=== PATIENT | male | born 1955 | race Caucasian/White ===

== ENCOUNTER 2021-03-16 14:32 | Emergency (ER) | payer MEDICARE, OTHER ==
[~2021-03-16] VITALS: Ht 170.2 cm; Wt 88.6 kg
[2021-03-16 15:06] VITALS: TEMP 98.1
[2021-03-16 15:54] LABS: BASO % 0.4 % (0.0-2.0); EOS # 0.2 (0.0-0.7); GRAN # 5.1 (1.4-6.5); GRAN % 63.9 % (42.2-75.2); HEMATOCRIT 37.8 % (42.0-52.0); HEMOGLOBIN 13.2 g/dl (13.5-18.0); LYMPH % 24.4 % (20.0-51.0); MEAN CELL VOLUME 90 fl (80.0-100.0); MEAN CORPUSCULAR HEMOGLOBIN 31 pg (27.0-31.0); MEAN CORPUSCULAR HGB CONC 35 g/dl (33.0-37.0); MEAN PLATELET VOLUME 10.7 fl (7.4-10.4); MONO # 0.7 (0.1-0.6); MONO % 9.1 % (1.7-9.3); PLATELET COUNT 205 K/mm3 (130-400); RED BLOOD COUNT 4.22 M/mm3 (4.20-5.60); REDCELL DISTRIBUTION WIDTH-CV 12.5 % (11.5-14.5)
[2021-03-16 16:04] LABS: ALANINE AMINOTRANSFERASE 18 U/L (4-49); ALBUMIN 4.1 gm/dL (3.5-5.0); ALKALINE PHOSPHATASE 41 U/L (50-136); ANION GAP 8 mmol/L (7-16); AST,SGOT 28 U/L (15-37); BILIRUBIN,TOTAL 0.5 mg/dL (0.0-1.0); BLOOD UREA NITROGEN 17 mg/dL (9-20); CALCIUM 6.2 mg/dL (8.4-10.2); CARBON DIOXIDE 26 mmol/L (22-30); CHLORIDE 109 mmol/L (98-107); CREATININE, serum 1.12 (0.66-1.25); GLUCOSE 106 mg/dL (74-106); SODIUM 143 mmol/L (137-145); TOTAL PROTEIN 7.4 gm/dL (6.4-8.2)
[2021-03-16 16:24] LABS: POTASSIUM 2.9 mmol/L (3.4-5.0); TROPONIN-I < 0.012 ng/mL (0.000-0.035)
[2021-03-16 16:42] LABS: C-REACTIVE PROTEIN < 0.5 mg/dL (0.0-0.9); MAGNESIUM < 0.2 mg/dL (1.6-2.3)
[2021-03-16] MEDS ORDERED: K-DUR20 MEQ PO (18:13)
[2021-03-16 19:06] VITALS: BP 126/80; PULSE 98
== END 2021-03-16 19:40 | disposition home or self-care (01) ==
LOC: COL.ER 14:32
PROVIDERS: Nurse Practitioner
DX: E87.6 Hypokalemia (principal); F17.210 Nicotine dependence, cigarettes, uncomplicated
CPT/HCPCS: J3475; Q9967

== ENCOUNTER → 2021-03-26 | Outpatient (CLI) | payer MEDICARE, OTHER ==
[~2021-03-26] MED LIST: ASPIRIN 81M81 MG/TA2 PO; BRILINTA90 MG PO; CENTRUM SILVER1 TAB; K-DUR20 MEQ PO; LIPITOR 40MG TA40 MG PO; LIPITOR 80MG80 MG PO; PEPCID 20MG TAB20 MG; TOPROL XL 25MG25 MG PO
== END ==
LOC: COL.RAD 03-20 14:30
DX: Z12.2 Encounter for screening for malignant neoplasm of respiratory organs (principal); Z00.00 Encounter for general adult medical examination without abnormal findings; J94.8 Other specified pleural conditions; Z87.891 Personal history of nicotine dependence

== ENCOUNTER 2021-05-04 13:05 | Day surgery (SDC) | payer MEDICARE, OTHER ==
[~2021-05-04] VITALS: Ht 170.2 cm; Wt 87.0 kg
[~2021-05-04 13:05] MED LIST changes: -ASPIRIN 81M81 MG/TA2 PO; -BRILINTA90 MG PO; -CENTRUM SILVER1 TAB; -LIPITOR 40MG TA40 MG PO; -LIPITOR 80MG80 MG PO; -PEPCID 20MG TAB20 MG; -TOPROL XL 25MG25 MG PO
--- NOTE | 2021-05-04 13:30 | NUR ---
Dr Verde here to talk with pt. No ASA given per physician since pt took at home this time.
[2021-05-04] MEDS ORDERED: ASPIRIN 81M81 MG/TA2 PO (13:54)
[2021-05-04] MEDS ORDERED: PEPCID 20MG TAB20 MG (13:55)
[2021-05-04] MEDS ORDERED: LIPITOR 40MG TA40 MG PO (13:56)
[2021-05-04] MEDS ORDERED: CENTRUM SILVER1 TAB (13:56)
[2021-05-04 13:57] VITALS: BP 128/88; PULSE 120; TEMP 98.9
[2021-05-04 13:59] LABS: HEMATOCRIT 43.1 % (42.0-52.0); HEMOGLOBIN 14.6 g/dl (13.5-18.0); MEAN CELL VOLUME 95 fl (80.0-100.0); MEAN CORPUSCULAR HEMOGLOBIN 32 pg (27.0-31.0); MEAN CORPUSCULAR HGB CONC 34 g/dl (33.0-37.0); MEAN PLATELET VOLUME 9.7 fl (7.4-10.4); PLATELET COUNT 215 K/mm3 (130-400); RED BLOOD COUNT 4.55 M/mm3 (4.20-5.60); REDCELL DISTRIBUTION WIDTH-CV 11.9 % (11.5-14.5)
[2021-05-04 14:01] LABS: INR 1.1 (0.8-3.0); PROTHROMBIN TIME 12.3 SECONDS (9.7-12.8)
[2021-05-04 14:04] LABS: PARTIAL THROMBOPLASTIN TIME 30.7 SECONDS (26.0-37.0)
[2021-05-04 14:18] LABS: ALBUMIN 4.4 gm/dL (3.5-5.0); BILIRUBIN,TOTAL 0.8 mg/dL (0.0-1.0); CALCIUM 9.3 mg/dL (8.4-10.2); CREATININE, serum 1.04 (0.66-1.25); MAGNESIUM 1.8 mg/dL (1.6-2.3); POTASSIUM 3.8 mmol/L (3.4-5.0); TOTAL PROTEIN 7.8 gm/dL (6.4-8.2)
--- NOTE | 2021-05-04 14:20 | NUR ---
RT here from pre-op EKG.
[2021-05-04 15:10] VITALS: BP 134/84; PULSE 109
--- NOTE | 2021-05-04 15:11 | NUR ---
SEE MERGE DOCUMENTATION FOR MEDICATION ADMINISTRATION TIMES AND INTRA/POST PROCEDURE SEDATION ASSESSMENTS.
[2021-05-04 19:43] VITALS: BP 119/71; PULSE 88; TEMP 97.8
[2021-05-04 23:01] VITALS: BP 105/71; PULSE 78; TEMP 98
--- NOTE | 2021-05-05 01:20 | NUR ---
AT 2240 ALL 14L OF T BAND RELEASE COMPLETED. THIS NURSE RELEASED AIR IN INCRAMENTS OF 2 EVERY HALF HOUR. HEMATOMA NOTED AT SHIFT CHANGE, T BAND REMAINS ON HEMATOMA INFLATED WITH AIR. THIS NURSE WILL CONTINUE TO MONITOR HEMATOMA, PT'S DENIES PARETHESIA, PAIN, NUMBNESS. PT CAPILLARY REFILL WNL, PT'S ARM NOT COOL TO THE TOUCH, PULSES WNL. PT DOES NOT EXPRESS ANY ADDITIONAL NEEDS AT THIS TIME. CALL LIGHT WITHIN REACH.
[2021-05-05 03:13] VITALS: BP 114/74; PULSE 74; TEMP 98.3
--- NOTE | 2021-05-05 06:36 | NUR ---
PT HAD UNEVENTFUL NIGHT, A/OX4, RADIAL SITE C/D/I, HEMATOMA ALMOST COMPLETELY RESOLVED,NO COOLNESS NOTED, CAPILLARY REFILL WNL, 02 ROOM AIR, N/S INFUSING AT 100. CALL LIGHT WITHIN REACH.
[2021-05-05 07:31] VITALS: BP 107/90; PULSE 74; TEMP 97.3
[2021-05-05 07:53] LABS: BASO % 0.4 % (0.0-2.0); EOS # 0.4 (0.0-0.7); EOS % 4.1 % (0-4.0); GRAN # 6.2 (1.4-6.5); HEMATOCRIT 41.1 % (42.0-52.0); HEMOGLOBIN 13.8 g/dl (13.5-18.0); LYMPH # 1.2 (1.2-3.4); LYMPH % 13.6 % (20.0-51.0); MEAN CELL VOLUME 94 fl (80.0-100.0); MEAN CORPUSCULAR HEMOGLOBIN 32 pg (27.0-31.0); MEAN CORPUSCULAR HGB CONC 34 g/dl (33.0-37.0); MEAN PLATELET VOLUME 9.9 fl (7.4-10.4); MONO # 0.8 (0.1-0.6); MONO % 9.4 % (1.7-9.3); PLATELET COUNT 194 K/mm3 (130-400); RED BLOOD COUNT 4.38 M/mm3 (4.20-5.60); REDCELL DISTRIBUTION WIDTH-CV 11.7 % (11.5-14.5)
[2021-05-05 08:00] LABS: CREATININE, serum 1.11 (0.66-1.25); POTASSIUM 3.9 mmol/L (3.4-5.0)
--- NOTE | 2021-05-05 09:31 | NUR ---
Initial visit; Patient thanked Assistant Food Service Manager for loooking in on him, offering God's blessings and to keep him in Assistant Food Service Manager's prayers.
--- NOTE | 2021-05-05 09:58 | NUR ---
JUAN LUIS met with the patient to discuss discharge plan. The patient lives alone in [place]. He states that his nephew, Enoc, lives [address] away from him. He reports independence with ADLs and does not have any DME. The patient's PCP is Dr. Hanane Motta and he receives his medications from [facility]. He reports no difficulties obtaining his meds. The patient does not have a DPOA-HC and he was not interested in completing one while here. He states that he already has a form at home he can fill out, when ready to. He states that he is not , has no children, and his parents are . He states that he has one sibling: Chandra. The patient plans to return home upon discharge. He states that his niece, Kaye (ph#[phone]), will transport him home. No additional needs at this time. *Discharge plan: home*
[2021-05-05] MEDS ORDERED: BRILINTA90 MG PO (10:31)
[2021-05-05] MEDS ORDERED: TOPROL XL 25MG25 MG PO (10:32)
[2021-05-05] MEDS ORDERED: LIPITOR 80MG80 MG PO (10:32)
--- NOTE | 2021-05-05 12:10 | NUR ---
Pt discharged to home, discussed discharge information with Pt. Pt escorted to entrance by PCT. Pt left with family via private transportation.
== END 2021-05-05 12:10 | disposition home or self-care (01) ==
LOC: COL.CAR 13:05 → MEDICAL 16:38 → COL.CAR 05-05 12:10 → MEDICAL 05-05 12:10
PROVIDERS: Internal Medicine Cardiovascular Disease
DX: I25.110 Atherosclerotic heart disease of native coronary artery with unstable angina pectoris (principal); E78.5 Hyperlipidemia, unspecified; K25.9 Gastric ulcer, unspecified as acute or chronic, without hemorrhage or perforation; E83.42 Hypomagnesemia; K26.9 Duodenal ulcer, unspecified as acute or chronic, without hemorrhage or perforation; F17.210 Nicotine dependence, cigarettes, uncomplicated; E66.9 Obesity, unspecified; Z20.822 Contact with and (suspected) exposure to COVID-19; Z68.30 Body mass index [BMI] 30.0-30.9, adult; Z79.82 Long term (current) use of aspirin; Z79.899 Other long term (current) drug therapy
CPT/HCPCS: OP; C1725; C1769; C1874; C1887; C9600; C9601; J0583; J1644; J2250; J3010; Q9967

== ENCOUNTER 2023-10-11 07:09 | Emergency (ER) | payer MEDICARE, OTHER ==
[~2023-10-11] VITALS: Ht 170.2 cm; Wt 93.2 kg
[~2023-10-11 07:09] MED LIST changes: +ASPIRIN 81M81 MG/TA2 PO; +BRILINTA90 MG PO; +CENTRUM SILVER1 TAB; +LIPITOR 40MG TA40 MG PO; +LIPITOR 80MG80 MG PO; +PEPCID 20MG TAB20 MG; +TOPROL XL 25MG25 MG PO
[2023-10-11 07:19] VITALS: TEMP 98.1
[2023-10-11] MEDS ORDERED: PERCOCET 325 MG1 TA2 PO (08:38)
[2023-10-11 08:44] VITALS: BP 143/86; PULSE 76
== END 2023-10-11 08:44 | disposition home or self-care (01) ==
LOC: COL.ER 07:09
DX: S09.90XA Unspecified injury of head, initial encounter (principal); S32.019A Unspecified fracture of first lumbar vertebra, initial encounter for closed fracture; S32.029A Unspecified fracture of second lumbar vertebra, initial encounter for closed fracture; S32.039A Unspecified fracture of third lumbar vertebra, initial encounter for closed fracture; Z79.02 Long term (current) use of antithrombotics/antiplatelets; W00.0XXA Fall on same level due to ice and snow, initial encounter; Y93.02 Activity, running